=== PATIENT | male | born 1955 | race Caucasian/White ===

== ENCOUNTER 2025-01-29 09:18 | Outpatient (CLI) | payer BC | END 2025-01-29 09:19 | disposition home or self-care (01) | LOC: CSHSLEEP 09:18 | PROVIDERS: ATTEND Family Medicine | DX: I12.9 Hypertensive chronic kidney disease with stage 1 through stage 4 chronic kidney disease, or unspecified chronic kidney disease (principal); N18.9 Chronic kidney disease, unspecified; K21.9 Gastro-esophageal reflux disease without esophagitis; E66.9 Obesity, unspecified; Z68.33 Body mass index [BMI] 33.0-33.9, adult; G47.33 Obstructive sleep apnea (adult) (pediatric) | CPT/HCPCS: 95811 ==